=== PATIENT | female | born 1940 | race Two or more races ===

== ENCOUNTER 2019-03-21 10:49 | Inpatient (IN) | payer OTHER ==
[~2019-03-21] VITALS: Ht 152.4 cm; Wt 65.8 kg
[2019-04-07] MEDS ORDERED: MICROZIDE12.5 MG PO (08:22)
[2019-04-07] MEDS ORDERED: PANTOPRAZOLE SO40 M1 PO (08:22)
[2019-04-07] MEDS ORDERED: PRAVASTATIN SOD40 MG PO (08:22)
[2019-04-07] MEDS ORDERED: ZESTRIL10 M1 PO (08:22)
== END 2019-04-20 13:55 | DRG 470 ==
LOC: O/R 04-18 04:30 → SURG 04-18 07:00 → EDBD 04-18 07:15 → SURG 04-18 07:15
PROVIDERS: ADMIT Orthopaedic Surgery
PROC: 0SRC0J9 Replacement of Right Knee Joint with Synthetic Substitute, Cemented, Open Approach (ICD-10-PCS; principal; 2019-04-18 07:00)
DX: M17.11 Unilateral primary osteoarthritis, right knee (principal); Z96.651 Presence of right artificial knee joint